=== PATIENT | female | born 1965 | race Caucasian/White ===

== ENCOUNTER 2018-01-10 20:05 | Emergency (ER) | payer SELFPAY ==
[2018-01-10 20:17] VITALS: BP 155/91; PULSE 79; TEMP 97.9; BMI 27.3
--- NOTE | 2018-01-10 20:21 | PDOC ---
Rapid Medical Evaluation Chief Complaint: Rash Time Seen by Provider: 01/10/18 20:15 Medical Evaluation: Allergies Allergy/AdvReac Type Severity Reaction Status Date / Time No Known Allergies Allergy Verified 01/10/18 20:11 Vital Signs Temp Pulse Resp BP Pulse Ox 97.9 F 79 18 155/91 100 01/10/18 20:12 01/10/18 20:12 01/10/18 20:12 01/10/18 20:12 01/10/18 20:12 01/10/18 20:17 I have performed a brief in-person evaluation of this patient. The patient presents with a chief complaint of: rash / bumps scattered on many areas of arms/ legs/ one on face Pertinent physical exam findings: discrete lesions / itching . No facial swelling/ signs of angioedema. lesions have APPEARANCE OF INSECT -TYPE BITES I have ordered the following: nothing The patient will proceed to the ED for further evaluation.
--- NOTE | 2018-01-10 20:51 | PDOC ---
History of Present Illness - General Chief Complaint: Rash Stated Complaint: RASH Time Seen by Provider: 01/10/18 20:15 - History of Present Illness Initial Comments: 52-year-old female without any pre-existing comorbidities presents for evaluation of new spotted rash on her arms and torso times one week. She has no other associated symptoms. 01/10/18 20:46 Past History - Past Medical History Allergies/Adverse Reactions: Allergies Allergy/AdvReac Type Severity Reaction Status Date / Time No Known Allergies Allergy Verified 01/10/18 20:11 Home Medications: Ambulatory Orders Diphenhydramine HCl [Benadryl -] 25 mg PO Q6H #60 capsule 01/10/18 Mometasone Furoate [Elocon] 15 gm TP BID #1 cream..g. 01/10/18 COPD: No - Suicide/Smoking/Psychosocial Hx Smoking History: Never smoked Review of Systems - Review of Systems Integumentary: Yes: See HPI, Lesions, Pruritus All Other Systems: Reviewed and Negative *Physical Exam - Vital Signs Last Vital Signs Temp Pulse Resp BP Pulse Ox 97.9 F 79 18 155/91 100 01/10/18 20:12 01/10/18 20:12 01/10/18 20:12 01/10/18 20:12 01/10/18 20:12 - Physical Exam Comments: There are multiple flat plaques throughout the arms and back 2-3 in succession. With associated excoriations from her scratching. There is no interdigital involvement. 01/10/18 20:47 Medical Decision Making - Medical Decision Making His or bug bites I'll prescribed to her a topical corticosteroid as well as oral antihistamine she may follow-up with the PCP. 01/10/18 20:47 *DC/Admit/Observation/Transfer Diagnosis at time of Disposition: Bug bite - Discharge Dispostion Disposition: HOME Condition at time of disposition: Stable Decision to Admit order: No - Referrals Referrals: Bobo Ferreira MD [Staff Physician] - - Patient Instructions Printed Discharge Instructions: DI for Bed Bug Bites Additional Instructions: These lesions on your skin appear to be bug bites. Please take the oral antihistamine for itching and applied a topical steroid cream I prescribed few twice daily as needed. Follow-up with the primary care physician I've given you in the next 1-2 days. Return to the emergency room if symptoms worsen or go unresolved prior to follow-up. - Post Discharge Activity
== END 2018-01-10 21:26 | disposition home or self-care (01) ==
LOC: JERFT 20:05
DX: S40.862A Insect bite (nonvenomous) of left upper arm, initial encounter (principal); S40.861A Insect bite (nonvenomous) of right upper arm, initial encounter; S30.860A Insect bite (nonvenomous) of lower back and pelvis, initial encounter; S20.469A Insect bite (nonvenomous) of unspecified back wall of thorax, initial encounter; W57.XXXA Bitten or stung by nonvenomous insect and other nonvenomous arthropods, initial encounter; Y93.89 Activity, other specified; Y92.89 Other specified places as the place of occurrence of the external cause; Y99.8 Other external cause status
CPT/HCPCS: 99281-25